=== PATIENT | female | born 1980 | race Caucasian/White ===

== ENCOUNTER 2023-06-08 09:56 | Emergency (ER) | payer OTHER ==
[2023-06-08 10:34] VITALS: RESP 18
[2023-06-08] MEDS: HYDROmorphone 0.5 MG/0.5 ML SYRINGE IVP STA (11:00)
[2023-06-08] MEDS: ONDANSETRON 4 MG/2 ML VIAL IVP STA (11:00)
[2023-06-08] MEDS: SODIUM CHLORIDE 0.9% 1,000 ML IV STA (11:01)
[2023-06-08 11:07] LABS: Basophils # (A) 0.1 k/uL (0-0.2); Basophils % (A) 1 %; Eosinophils # (A) 0.5 k/uL (0-0.7); Eosinophils % (A) 6 %; HCT 41.1 % (34.0-46.0); HGB 13.5 gm/dL (11.4-16.0); Lymphocytes # (A) 1.7 k/uL (1.0-4.8); Lymphocytes % (A) 20 %; MCHC 32.9 g/dL (31.0-37.0); MCV 91.2 fL (80.0-100.0); Mean Platelet Volume 7.6; Monocytes # (A) 0.3 k/uL (0-1.0); Monocytes % (A) 4 %; Neutrophils # (A) 6.1 k/uL (1.3-7.7); Neutrophils % (A) 69 %; Platelet Count 221 k/uL (150-450); RDW 12.4 % (11.5-15.5); WBC 8.8 k/uL (3.8-10.6)
[2023-06-08 12:19] LABS: ALT 13 U/L (4-34); African American GFR (CKD) >90 (>60 ml/min/1.73 sqM); Anion Gap 5 mmol/L; Blood Urea Nitrogen 11 mg/dL (7-17); Carbon Dioxide 21 mmol/L (22-30); Chloride 110 mmol/L (98-107); Glucose 83 mg/dL (74-99); Lipase 106 U/L (23-300); Non-African American GFR(CKD) >90 (>60 ml/min/1.73 sqM); Sodium 136 mmol/L (137-145); Total Bilirubin 0.7 mg/dL (0.2-1.3); Total Protein 6.9 g/dL (6.3-8.2)
[2023-06-08 12:21] LABS: AST 29 U/L (14-36); Alkaline Phosphatase 49 U/L (38-126); Potassium 4.6 mmol/L (3.5-5.1)
--- NOTE | 2023-06-08 13:05 | CT ---
EXAMINATION TYPE: CT abdomen pelvis w con DATE OF EXAM: 06/08/2023 COMPARISON: None HISTORY: hernia pain, abd pain. CT DLP: 798.3 mGycm CONTRAST: CT scan of the abdomen and pelvis is performed without Oral Contrast and with IV Contrast, patient in jected with 100ml mL of Isovue 300. FINDINGS: LUNG BASES-: No visible nodule. No infiltrate. LIVER/GB: No calcified gallstones. No space occupying hepatic lesion. Biliary tree is of normal ca liber. PANCREAS: No inflammation. No distinct mass. SPLEEN: No splenic enlargement. No lesion seen. ADRENALS: No nodule. No thickening. KIDNEYS/BLADDER: No hydronephrosis. No nephrolithiasis. No distinct renal mass. Urinary bladder g rossly unremarkable. BOWEL: Normal appendix. Normal bowel caliber. No inflammation. GENITAL ORGANS: Left ovarian follicular cyst measuring 1.2 cm. Correlate for bicornuate uterus. No ri ght adnexal masses. LYMPH NODES: No greater than 1cm abdominal or pelvic lymph nodes are appreciated. AORTA: No significant abnormality. OSSEOUS STRUCTURES: No significant abnormality is seen. OTHER: Fat-containing umbilical hernia 3.1 x 2.8 cm. IMPRESSION: 1. Left ovarian follicular cyst measuring 1.2 cm. Correlate for bicornuate uterus. 2. Fat-containing umbilical hernia.
[2023-06-08] MEDS: droPERidol 5 MG/2 ML VIAL IVP ONE (13:14)
--- NOTE | 2023-06-08 14:06 | ED ---
Abdominal Pain HPI - General Chief Complaint: Abdominal Pain Stated Complaint: Abdominal Pain Time Seen by Provider: 06/08/23 10:11 Source: patient, RN notes reviewed Mode of arrival: ambulatory Limitations: no limitations - History of Present Illness Initial Comments: 42-year-old female presents emergency department complaint of abdominal abdominal pain for over a week. Patient states that she seen on outside facility was diagnosed with possible incarcerated hernia. She states that they tried to reduce unsuccessful. Patient states that she has been referred to Dr. Greer which patient is scheduled to see him tomorrow. Patient states that she was concerned as pain worsened today she does have associated nausea and vomiting. Patient denies any trauma denies any other associated symptoms. - Related Data Home Medications Medication Instructions Recorded Confirmed Acetaminophen Tab [Tylenol Tab] 1,000 mg PO Q6HR PRN 06/08/23 06/08/23 Albuterol Inhaler [Ventolin Hfa 1 - 2 puff INHALATION RT-Q6H PRN 06/08/23 06/08/23 Inhaler] Benzonatate [Tessalon Perles] 100 mg PO TID PRN 06/08/23 06/08/23 Hyoscyamine Sulfate [Levsin] 1 dose PO DIRECTED 06/08/23 06/08/23 LORazepam [Ativan] 0.5 mg PO DAILY PRN 06/08/23 06/08/23 Ondansetron Odt [Zofran Odt] 4 mg PO Q8HR PRN 06/08/23 06/08/23 PARoxetine HCL 40 mg PO DAILY 06/08/23 06/08/23 Rosuvastatin [Crestor] 20 mg PO DAILY 06/08/23 06/08/23 traZODone HCL [Desyrel] 100 mg PO HS 06/08/23 06/08/23 Previous Rx's Medication Instructions Recorded Ondansetron Odt [Zofran Odt] 4 mg PO Q8HR PRN #10 tab 06/08/23 Allergies Allergy/AdvReac Type Severity Reaction Status Date / Time cefaclor [From [facility]] Allergy Rash/Hives Verified 06/08/23 13:51 doxycycline Allergy Nausea & Verified 06/08/23 13:51 Vomiting Penicillins Allergy Rash/Hives Verified 06/08/23 13:51 Sulfa (Sulfonamide Allergy Anaphylaxis Verified 06/08/23 13:51 Antibiotics) Review of Systems ROS Statement: Those systems with pertinent positive or pertinent negative responses have been documented in the HPI. ROS Other: All systems not noted in ROS Statement are negative. Past Medical History Past Medical History: No Reported History History of Any Multi-Drug Resistant Organisms: None Reported Past Surgical History: Tubal Ligation Past Psychological History: Anxiety Smoking Status: Vaper Past Alcohol Use History: None Reported Past Drug Use History: Marijuana General Exam Limitations: no limitations General appearance: alert, in no apparent distress Head exam: Present: atraumatic, normocephalic, normal inspection Respiratory exam: Present: normal lung sounds bilaterally. Absent: respiratory distress, wheezes, rales, rhonchi, stridor Cardiovascular Exam: Present: regular rate, normal rhythm, normal heart sounds. Absent: systolic murmur, diastolic murmur, rubs, gallop, clicks GI/Abdominal exam: Present: soft, tenderness, normal bowel sounds. Absent: distended, guarding, rebound, rigid Course Vital Signs 06/08/23 06/08/23 10:23 14:20 Temperature 97.9 F 98.3 F Pulse Rate 65 59 L Respiratory 18 18 Rate Blood Pressure 118/78 100/62 O2 Sat by Pulse 99 98 Oximetry Medical Decision Making - Medical Decision Making Was pt. sent in by a medical professional or institution (NIRAJ Hurley, STAFF MIDWIFE/APPRENTICESHIP DIRECTOR, urgent care, hospital, or snf...) When possible be specific @ -No Did you speak to anyone other than the patient for history (EMS, parent, family, police, friend...)? What history was obtained from this source @ -No Did you review nursing and triage notes (agree or disagree)? Why? @ -I reviewed and agree with nursing and triage notes Were old charts reviewed (outside hosp., previous admission, EMS record, old EKG, old radiological studies, urgent care reports/EKG's, snf records)? Report findings @ -No old charts were reviewed Differential Diagnosis (chest pain, altered mental status, abdominal pain women, abdominal pain men, vaginal bleeding, weakness, fever, dyspnea, syncope, headache, dizziness, GI bleed, back pain, seizure, CVA, palpatations, mental health, musculoskeletal)? @ -Differential Abdominal Pain Women: Appendicitis, Cholecystitis, diverticulosis, ischemic bowel, pancreatitis, hepatitis, UTI, gastroenteritis, AAA, incarcerated hernia, bowel obstruction, constipation, inflammatory bowel, hepatitis, peptic ulcer disease, splenic infarction, perforated viscus, vulvitis, ovarian torsion, PID, kidney stone, placenta abruption, this is not meant to be an all-inclusive list EKG interpreted by me (3pts min.). @ -none X-rays interpreted by me (1pt min.). @ -None done CT interpreted by me (1pt min.). @ -CT abdomen pelvis showing umbilical hernia fat-containing no bowel or other concerning findings U/S interpreted by me (1pt. min.). @ -None done What testing was considered but not performed or refused? (CT, X-rays, U/S, labs)? Why? @ -None What meds were considered but not given or refused? Why? @ -None Did you discuss the management of the patient with other professionals (professionals i.e. , PA, STAFF MIDWIFE/APPRENTICESHIP DIRECTOR, lab, RT, psych nurse, social service assistant, documentation supervisor, teacher, minesweeping officer, egg caser)? Give summary @ -No Was smoking cessation discussed for >3mins.? @ -No Was critical care preformed (if so, how long)? @ -No Were there social determinants of health that impacted care today? How? (Homelessness, low income, unemployed, alcoholism, drug addiction, transportation, low edu. Level, literacy, decrease access to med. care, usp, rehab)? @ -No Was there de-escalation of care discussed even if they declined (Discuss DNR or withdrawal of care, Hospice)? DNR status @ -No What co-morbidities impacted this encounter? (DM, HTN, Smoking, COPD, CAD, Cancer, CVA, ARF, Chemo, Hep., AIDS, mental health diagnosis, sleep apnea, morbid obesity)? @ -None Was patient admitted / discharged? Hospital course, mention meds given and route, prescriptions, significant lab abnormalities, going to OR and other pertinent info. @ -Discharge patient has appointment with surgery tomorrow Dr. Greer Patient has no incarcerated hernia. Patient laboratory studies unremarkable be discharged in stable condition. Undiagnosed new problem with uncertain prognosis? @ -No Drug Therapy requiring intensive monitoring for toxicity (Heparin, Nitro, Insulin, Cardizem)? @ -No Were any procedures done? @ -No Diagnosis/symptom? @ -Fat-containing umbilical hernia Acute, or Chronic, or Acute on Chronic? @ -Acute Uncomplicated (without systemic symptoms) or Complicated (systemic symptoms)? @ -Uncomplicated Side effects of treatment? @ -No Exacerbation, Progression, or Severe Exacerbation? @ -No Poses a threat to life or bodily function? How? (Chest pain, [place], [place], pneumonia, PE, COPD, DKA, ARF, appy, cholecystitis, CVA, Diverticulitis, Homicidal, Suicidal, threat to staff... and all critical care pts) @ -No - Lab Data Result diagrams: 06/08/23 10:57 06/08/23 10:57 Lab Results 06/08/23 06/08/23 06/08/23 Range/Units 10:57 10:57 11:20 WBC 8.8 (3.8-10.6) k/uL RBC 4.50 (3.80-5.40) m/uL Hgb 13.5 (11.4-16.0) gm/dL Hct 41.1 (34.0-46.0) % MCV 91.2 (80.0-100.0) fL MCH 30.0 (25.0-35.0) pg MCHC 32.9 (31.0-37.0) g/dL RDW 12.4 (11.5-15.5) % Plt Count 221 (150-450) k/uL MPV 7.6 Neutrophils % 69 % Lymphocytes % 20 % Monocytes % 4 % Eosinophils % 6 % Basophils % 1 % Neutrophils # 6.1 (1.3-7.7) k/uL Lymphocytes # 1.7 (1.0-4.8) k/uL Monocytes # 0.3 (0-1.0) k/uL Eosinophils # 0.5 (0-0.7) k/uL Basophils # 0.1 (0-0.2) k/uL Sodium 136 L (137-145) mmol/L Potassium 4.6 (3.5-5.1) mmol/L Chloride 110 H (98-107) mmol/L Carbon Dioxide 21 L (22-30) mmol/L Anion Gap 5 mmol/L BUN 11 (7-17) mg/dL Creatinine 0.69 (0.52-1.04) mg/dL Est GFR (CKD-EPI)AfAm >90 (>60 ml/min/1.73 sqM) Est GFR (CKD-EPI)NonAf >90 (>60 ml/min/1.73 sqM) Glucose 83 (74-99) mg/dL Plasma Lactic Acid Devon 0.7 (0.7-2.0) mmol/L Calcium 9.0 (8.4-10.2) mg/dL Total Bilirubin 0.7 (0.2-1.3) mg/dL AST 29 (14-36) U/L ALT 13 (4-34) U/L Alkaline Phosphatase 49 (38-126) U/L Total Protein 6.9 (6.3-8.2) g/dL Albumin 4.0 (3.5-5.0) g/dL Lipase 106 (23-300) U/L Disposition Clinical Impression: Umbilical hernia Disposition: HOME SELF-CARE Condition: Stable Instructions (If sedation given, give patient instructions): Umbilical Hernia (ED) Additional Instructions: Please return to the Emergency Department if symptoms worsen or any other concerns. Prescriptions: Ondansetron Odt [Zofran Odt] 4 mg PO Q8HR PRN #10 tab PRN Reason: Nausea Is patient prescribed a controlled substance at d/c from ED?: No Referrals: Ganga Leone MD [Primary Care Provider] - 1-2 days Narendra Greer MD [STAFF PHYSICIAN] - 1-2 days Time of Disposition: 14:05
[2023-06-08] MEDS: ACET/COD 300 MG/30 MG STARTER PACK 6 TAB BTL PO STA (14:17)
[2023-06-08 14:59] VITALS: BP 100/62; PULSE 59; TEMP 98.3
== END 2023-06-08 14:28 | disposition home or self-care (01) ==
LOC: EC 09:56
DX: K42.9 Umbilical hernia without obstruction or gangrene (principal); N83.02 Follicular cyst of left ovary; F17.290 Nicotine dependence, other tobacco product, uncomplicated; F12.90 Cannabis use, unspecified, uncomplicated; Z88.0 Allergy status to penicillin; Z88.2 Allergy status to sulfonamides; Z88.8 Allergy status to other drugs, medicaments and biological substances
CPT/HCPCS: 36415; 80053; 83605; 83690; 85025; 74177; 99284; 96374; 96375 ×2; 96361; J2405; J1170; Q9967; J1790

== ENCOUNTER 2023-06-13 17:08 | Observation (INO) | payer OTHER ==
--- NOTE | 2023-06-13 17:55 | ED ---
Abdominal Pain HPI - General Chief Complaint: Abdominal Pain Stated Complaint: Hernia Time Seen by Provider: 06/13/23 17:17 Source: patient Mode of arrival: ambulatory Limitations: no limitations - History of Present Illness Initial Comments: 42-year-old female present with chief complaint of abdominal pain. Patient states that she has been constipated and has not had a bowel movement for the last 3 days. She is having severe pressure and pain, mainly in the left lower quadrant and lower abdomen. She has surgery for an umbilical hernia scheduled for Thursday with Dr. Greer. She admits to nausea and vomiting. No fevers. No chest pain or difficulty breathing. Surgical history includes tubal ligation. - Related Data Home Medications Medication Instructions Recorded Confirmed Acetaminophen Tab [Tylenol Tab] 1,000 mg PO Q6HR PRN 06/08/23 06/12/23 Albuterol Inhaler [Ventolin Hfa 1 - 2 puff INHALATION RT-Q6H PRN 06/08/23 06/12/23 Inhaler] Benzonatate [Tessalon Perles] 100 mg PO TID PRN 06/08/23 06/12/23 Hyoscyamine Sulfate [Levsin] 1 dose PO DIRECTED 06/08/23 06/12/23 LORazepam [Ativan] 0.5 mg PO DAILY PRN 06/08/23 06/12/23 Ondansetron Odt [Zofran Odt] 4 mg PO Q8HR PRN 06/08/23 06/12/23 PARoxetine HCL 40 mg PO DAILY 06/08/23 06/12/23 Rosuvastatin [Crestor] 20 mg PO DAILY 06/08/23 06/12/23 traZODone HCL [Desyrel] 100 mg PO HS 06/08/23 06/12/23 Allergies Allergy/AdvReac Type Severity Reaction Status Date / Time cefaclor [From [facility]] Allergy Rash/Hives Verified 06/13/23 17:13 doxycycline Allergy Nausea & Verified 06/13/23 17:13 Vomiting Penicillins Allergy Rash/Hives Verified 06/13/23 17:13 Sulfa (Sulfonamide Allergy Anaphylaxis Verified 06/13/23 17:13 Antibiotics) Review of Systems ROS Statement: Those systems with pertinent positive or pertinent negative responses have been documented in the HPI. ROS Other: All systems not noted in ROS Statement are negative. Past Medical History Past Medical History: No Reported History Additional Past Medical History / Comment(s): UMBILICAL HERNIA History of Any Multi-Drug Resistant Organisms: None Reported Past Surgical History: Tubal Ligation, Uterine Ablation Additional Past Surgical History / Comment(s): UTERINE ABLATION 05/2021 Past Anesthesia/Blood Transfusion Reactions: No Reported Reaction Past Psychological History: Anxiety, Panic Disorder Smoking Status: Former smoker, Vaper Past Alcohol Use History: None Reported Past Drug Use History: None Reported - Past Family History Mother Family Medical History: No Reported History Additional Family Medical History / Comment(s): ADOPTED General Exam Limitations: no limitations General appearance: alert, in distress (crying, in pain) Head exam: Present: atraumatic, normocephalic Eye exam: Present: normal appearance Neck exam: Present: normal inspection Respiratory exam: Present: normal lung sounds bilaterally. Absent: respiratory distress, wheezes, rales, rhonchi, stridor Cardiovascular Exam: Present: regular rate, normal rhythm, normal heart sounds. Absent: systolic murmur, diastolic murmur, rubs, gallop, clicks GI/Abdominal exam: Present: soft, tenderness, guarding. Absent: distended, rebound, rigid Neurological exam: Present: alert, oriented X3 Psychiatric exam: Present: normal affect, normal mood Skin exam: Present: warm, dry Course Vital Signs 06/13/23 06/13/23 06/13/23 17:11 18:10 19:05 Temperature 97.8 F 98.8 F 98.0 F Pulse Rate 72 74 68 Respiratory 16 20 17 Rate Blood Pressure 107/76 103/78 96/63 O2 Sat by Pulse 99 96 96 Oximetry 06/13/23 06/13/23 06/13/23 20:03 21:00 21:54 Temperature Pulse Rate 70 62 62 Respiratory 16 16 16 Rate Blood Pressure 90/63 94/62 102/70 O2 Sat by Pulse 97 97 98 Oximetry 06/13/23 22:58 Temperature 98.6 F Pulse Rate 63 Respiratory 16 Rate Blood Pressure 100/71 O2 Sat by Pulse 97 Oximetry Medical Decision Making - Medical Decision Making Was pt. sent in by a medical professional or institution (, PA, LIQUEFIED NATURAL GAS OPERATOR, urgent care, hospital, or [place] health care facility...) When possible be specific @ -No Did you speak to anyone other than the patient for history (EMS, parent, family, police, friend...)? What history was obtained from this source @ -No Did you review nursing and triage notes (agree or disagree)? Why? @ -I reviewed and agree with nursing and triage notes Were old charts reviewed (outside hosp., previous admission, EMS record, old EKG, old radiological studies, urgent care reports/EKG's, [place] health care facility records)? Report findings @ -No old charts were reviewed Differential Diagnosis (chest pain, altered mental status, abdominal pain women, abdominal pain men, vaginal bleeding, weakness, fever, dyspnea, syncope, headache, dizziness, GI bleed, back pain, seizure, CVA, palpatations, mental health, musculoskeletal)? @ -MDM Differential Abdominal Pain Women: Appendicitis, Cholecystitis, diverticulosis, ischemic bowel, pancreatitis, hepatitis, UTI, gastroenteritis, AAA, incarcerated hernia, bowel obstruction, constipation, inflammatory bowel, hepatitis, peptic ulcer disease, splenic infarction, perforated viscus, vulvitis, ovarian torsion, PID, kidney stone, placenta abruption... This is not meant to be an all-inclusive list EKG interpreted by me (3pts min.). @ -As above X-rays interpreted by me (1pt min.). @ -None done CT interpreted by me (1pt min.). @ -CT shows fluid distention of small and large bowel felt to reflect enterocolitis with mild ileus. Normal fluid distended appendix. U/S interpreted by me (1pt. min.). @ -None done What testing was considered but not performed or refused? (CT, X-rays, U/S, labs)? Why? @ -None What meds were considered but not given or refused? Why? @ -None Did you discuss the management of the patient with other professionals (professionals i.e. , PA, LIQUEFIED NATURAL GAS OPERATOR, lab, RT, psych nurse, social group worker, residence life director, teacher, youth officer, supervisor case loading)? Give summary @ -Spoke with Edna Nguyen from [facility] who accepted admission Was smoking cessation discussed for >3mins.? @ -No Was critical care preformed (if so, how long)? @ -No Were there social determinants of health that impacted care today? How? (Homelessness, low income, unemployed, alcoholism, drug addiction, transportation, low edu. Level, literacy, decrease access to med. care, detention, rehab)? @ -No Was there de-escalation of care discussed even if they declined (Discuss DNR or withdrawal of care, Hospice)? DNR status @ -No What co-morbidities impacted this encounter? (DM, HTN, Smoking, COPD, CAD, Cancer, CVA, ARF, Chemo, Hep., AIDS, mental health diagnosis, sleep apnea, morbid obesity)? @ -None Was patient admitted / discharged? Hospital course, mention meds given and route, prescriptions, significant lab abnormalities, going to OR and other pertinent info. @ -42-year-old female presenting with chief complaint of abdominal pain, nausea, vomiting. She has been unable to have a bowel movement for several days. On physical exam the patient is diffusely tender but seems to be most tender in the left lower quadrant. WBC 14.6, may be reactive due to vomiting. Urine shows small blood with trace leukocytes. CT shows evidence of enterocolitis with mild ileus. The patient's pain has been brought down somewhat but she is still quite uncomfortable even after pain medication. She will be admitted for observation with surgical consult. Patient is agreeable with this plan. I discussed this case with my attending Dr. Becerril Undiagnosed new problem with uncertain prognosis? @ -No Drug Therapy requiring intensive monitoring for toxicity (Heparin, Nitro, Insulin, Cardizem)? @ -No Were any procedures done? @ -No Diagnosis/symptom? @ -Ileus Acute, or Chronic, or Acute on Chronic? @ -Acute Uncomplicated (without systemic symptoms) or Complicated (systemic symptoms)? @ -Complicated Side effects of treatment? @ -No Exacerbation, Progression, or Severe Exacerbation? @ -No Poses a threat to life or bodily function? How? (Chest pain, [place], [place], pneumonia, PE, COPD, DKA, ARF, appy, cholecystitis, CVA, Diverticulitis, Homicidal, Suicidal, threat to staff... and all critical care pts) @ -Potentially - Lab Data Result diagrams: 06/13/23 18:00 06/13/23 18:00 Lab Results 06/13/23 06/13/23 06/13/23 Range/Units 17:45 18:00 18:00 WBC 14.6 H (3.8-10.6) k/uL RBC 5.07 (3.80-5.40) m/uL Hgb 15.1 (11.4-16.0) gm/dL Hct 46.0 (34.0-46.0) % MCV 90.6 (80.0-100.0) fL MCH 29.7 (25.0-35.0) pg MCHC 32.8 (31.0-37.0) g/dL RDW 12.5 (11.5-15.5) % Plt Count 303 (150-450) k/uL MPV 7.5 Neutrophils % 71 % Lymphocytes % 20 % Monocytes % 3 % Eosinophils % 4 % Basophils % 1 % Neutrophils # 10.4 H (1.3-7.7) k/uL Lymphocytes # 2.9 (1.0-4.8) k/uL Monocytes # 0.5 (0-1.0) k/uL Eosinophils # 0.6 (0-0.7) k/uL Basophils # 0.1 (0-0.2) k/uL Sodium 138 (137-145) mmol/L Potassium 4.4 (3.5-5.1) mmol/L Chloride 102 (98-107) mmol/L Carbon Dioxide 27 (22-30) mmol/L Anion Gap 9 mmol/L BUN 14 (7-17) mg/dL Creatinine 0.76 (0.52-1.04) mg/dL Est GFR (CKD-EPI)AfAm >90 (>60 ml/min/1.73 sqM) Est GFR (CKD-EPI)NonAf >90 (>60 ml/min/1.73 sqM) Glucose 99 (74-99) mg/dL Plasma Lactic Acid Devon (0.7-2.0) mmol/L Calcium 10.3 H (8.4-10.2) mg/dL Total Bilirubin 0.8 (0.2-1.3) mg/dL AST 23 (14-36) U/L ALT 14 (4-34) U/L Alkaline Phosphatase 53 (38-126) U/L Total Protein 8.1 (6.3-8.2) g/dL Albumin 4.8 (3.5-5.0) g/dL Amylase 55 (30-110) U/L Lipase 101 (23-300) U/L Urine Color Yellow Urine Appearance Cloudy H (Clear) Urine pH 7.5 (5.0-8.0) Ur Specific [place] 1.021 (1.001-1.035) Urine Protein Trace H (Negative) Urine Glucose (UA) Negative (Negative) Urine Ketones 2+ H (Negative) Urine Blood Small H (Negative) Urine Nitrite Negative (Negative) Urine Bilirubin Negative (Negative) Urine Urobilinogen <2.0 (<2.0) mg/dL Ur Leukocyte Esterase Trace H (Negative) Urine RBC 7 H (0-5) /hpf Urine WBC 2 (0-5) /hpf Ur Squamous Epith Cells 19 H (0-4) /hpf Urine Bacteria Moderate H (None) /hpf Urine Mucus Few H (None) /hpf 06/13/23 Range/Units 18:00 WBC (3.8-10.6) k/uL RBC (3.80-5.40) m/uL Hgb (11.4-16.0) gm/dL Hct (34.0-46.0) % MCV (80.0-100.0) fL MCH (25.0-35.0) pg MCHC (31.0-37.0) g/dL RDW (11.5-15.5) % Plt Count (150-450) k/uL MPV Neutrophils % % Lymphocytes % % Monocytes % % Eosinophils % % Basophils % % Neutrophils # (1.3-7.7) k/uL Lymphocytes # (1.0-4.8) k/uL Monocytes # (0-1.0) k/uL Eosinophils # (0-0.7) k/uL Basophils # (0-0.2) k/uL Sodium (137-145) mmol/L Potassium (3.5-5.1) mmol/L Chloride (98-107) mmol/L Carbon Dioxide (22-30) mmol/L Anion Gap mmol/L BUN (7-17) mg/dL Creatinine (0.52-1.04) mg/dL Est GFR (CKD-EPI)AfAm (>60 ml/min/1.73 sqM) Est GFR (CKD-EPI)NonAf (>60 ml/min/1.73 sqM) Glucose (74-99) mg/dL Plasma Lactic Acid Devon 1.1 (0.7-2.0) mmol/L Calcium (8.4-10.2) mg/dL Total Bilirubin (0.2-1.3) mg/dL AST (14-36) U/L ALT (4-34) U/L Alkaline Phosphatase (38-126) U/L Total Protein (6.3-8.2) g/dL Albumin (3.5-5.0) g/dL Amylase (30-110) U/L Lipase (23-300) U/L Urine Color Urine Appearance (Clear) Urine pH (5.0-8.0) Ur Specific [place] (1.001-1.035) Urine Protein (Negative) Urine Glucose (UA) (Negative) Urine Ketones (Negative) Urine Blood (Negative) Urine Nitrite (Negative) Urine Bilirubin (Negative) Urine Urobilinogen (<2.0) mg/dL Ur Leukocyte Esterase (Negative) Urine RBC (0-5) /hpf Urine WBC (0-5) /hpf Ur Squamous Epith Cells (0-4) /hpf Urine Bacteria (None) /hpf Urine Mucus (None) /hpf Disposition Clinical Impression: Ileus Disposition: ADMITTED IP TO THIS HOSP Condition: Fair Time of Disposition: 21:33
[2023-06-13] MEDS: HYDROmorphone 1 MG/ML 1 ML SYRINGE IVP STA (18:02)
[2023-06-13] MEDS: ONDANSETRON 4 MG/2 ML VIAL IVP STA (18:05)
[2023-06-13] MEDS: SODIUM CHLORIDE 0.9% 1,000 ML IV STA (18:06)
[2023-06-13 18:14] LABS: Basophils # (A) 0.1 k/uL (0-0.2); Basophils % (A) 1 %; Eosinophils # (A) 0.6 k/uL (0-0.7); Eosinophils % (A) 4 %; HGB 15.1 gm/dL (11.4-16.0); Lymphocytes # (A) 2.9 k/uL (1.0-4.8); Lymphocytes % (A) 20 %; MCH 29.7 pg (25.0-35.0); MCHC 32.8 g/dL (31.0-37.0); MCV 90.6 fL (80.0-100.0); Mean Platelet Volume 7.5; Monocytes # (A) 0.5 k/uL (0-1.0); Monocytes % (A) 3 %; Neutrophils # (A) 10.4 k/uL (1.3-7.7); Neutrophils % (A) 71 %; Platelet Count 303 k/uL (150-450); RBC 5.07 m/uL (3.80-5.40); RDW 12.5 % (11.5-15.5); WBC 14.6 k/uL (3.8-10.6)
[2023-06-13 18:27] LABS: ALT 14 U/L (4-34); AST 23 U/L (14-36); African American GFR (CKD) >90 (>60 ml/min/1.73 sqM); Albumin 4.8 g/dL (3.5-5.0); Alkaline Phosphatase 53 U/L (38-126); Amylase 55 U/L (30-110); Anion Gap 9 mmol/L; Blood Urea Nitrogen 14 mg/dL (7-17); Calcium 10.3 mg/dL (8.4-10.2); Carbon Dioxide 27 mmol/L (22-30); Chloride 102 mmol/L (98-107); Glucose 99 mg/dL (74-99); Lipase 101 U/L (23-300); Non-African American GFR(CKD) >90 (>60 ml/min/1.73 sqM); Potassium 4.4 mmol/L (3.5-5.1); Sodium 138 mmol/L (137-145); Total Bilirubin 0.8 mg/dL (0.2-1.3); Total Protein 8.1 g/dL (6.3-8.2)
[2023-06-13 18:40] LABS: Appearance,Urine Cloudy (Clear); Bacteria,Urine Moderate /hpf; Bilirubin,Urine Negative (Negative); Blood,Urine Small (Negative); Color,Urine Yellow; Glucose,Urine (UA) Negative (Negative); Ketones,Urine 2+ (Negative); Leukocyte Esterase,Urine Trace (Negative); Mucus,Urine Few /hpf; Nitrite,Urine Negative (Negative); PH, Urine 7.5 (5.0-8.0); Protein,Urine Trace (Negative); RBC,Urine 7 /hpf (0-5); Specific Gravity,Urine 1.021 (1.001-1.035); Squamous Epithelial Cell,Urine 19 /hpf (0-4); Urobilinogen,Urine <2.0 mg/dL (<2.0); WBC,Urine 2 /hpf (0-5)
[2023-06-13] MEDS: SODIUM CHLORIDE 0.9% 1,000 ML IV ONE (20:02)
[2023-06-13] MEDS: KETOROLAC 15 MG/ML 1 ML VIAL IVP STA (20:18)
[2023-06-13] MEDS: SODIUM CHLORIDE 0.9% 1,000 ML IV SCH (20:24)
--- NOTE | 2023-06-13 21:12 | CT ---
EXAMINATION TYPE: CT abdomen pelvis w con DATE OF EXAM: 06/13/2023 COMPARISON: 06/08/2023 HISTORY: Abdominal pain, umbilical hernia. CT DLP: 808.5 mGycm CONTRAST: CT scan of the abdomen and pelvis is performed without Oral Contrast and with IV Contrast, patient in jected with 100 ml mL of Isovue 300. FINDINGS: LUNG BASES-: No visible nodule. No infiltrate. LIVER/GB: No calcified gallstones. No space occupying hepatic lesion. Biliary tree is of normal ca liber. PANCREAS: No inflammation. No distinct mass. SPLEEN: No splenic enlargement. No lesion seen. ADRENALS: No nodule. No thickening. KIDNEYS/BLADDER: No hydronephrosis. No nephrolithiasis. No distinct renal mass. Urinary bladder g rossly unremarkable. BOWEL: There is now fluid distention of small and large bowel felt to reflect enterocolitis with mild ileus. No definite obstructive change. No evidence for perforation or free air. Normal appearance of the distended appendix. GENITAL ORGANS: Colloid for bicornuate uterus. LYMPH NODES: No greater than 1cm abdominal or pelvic lymph nodes are appreciated. AORTA: No significant abnormality. OSSEOUS STRUCTURES: No significant abnormality is seen. OTHER: Fat-containing umbilical hernia redemonstrated. IMPRESSION: 1. There is now fluid distention of small and large bowel felt to reflect enterocolitis with mild ile us. 2. Normal fluid distended appendix.
[2023-06-13] MEDS ORDERED: KETOROLAC 15 MG/ML 1 ML VIAL IVP PRN (21:30)
[2023-06-13] MEDS ORDERED: NALOXONE 0.4 MG/ML 1 ML VIAL IV PRN (21:30)
[2023-06-13] MEDS: HYDROmorphone 1 MG/ML 1 ML SYRINGE IVP PRN (21:53)
[2023-06-13] MEDS: LORazepam 2 MG/ML INJ IV PRN (23:31)
[2023-06-14] MEDS: ONDANSETRON 4 MG/2 ML VIAL IVP PRN (05:37)
[2023-06-14 09:46] LABS: ALT 11 U/L (4-34); AST 19 U/L (14-36); African American GFR (CKD) >90 (>60 ml/min/1.73 sqM); Albumin 3.5 g/dL (3.5-5.0); Albumin/Globulin Ratio 1.4; Alkaline Phosphatase 45 U/L (38-126); Anion Gap 4 mmol/L; Blood Urea Nitrogen 11 mg/dL (7-17); Calcium 8.4 mg/dL (8.4-10.2); Carbon Dioxide 25 mmol/L (22-30); Chloride 111 mmol/L (98-107); Globulin 2.5 g/dL; Glucose 81 mg/dL (74-99); Non-African American GFR(CKD) >90 (>60 ml/min/1.73 sqM); Potassium 4.1 mmol/L (3.5-5.1); Sodium 140 mmol/L (137-145); Total Bilirubin 0.6 mg/dL (0.2-1.3)
[2023-06-14 10:03] LABS: Basophils % (A) 1 %; Eosinophils # (A) 0.6 k/uL (0-0.7); Eosinophils % (A) 7 %; HCT 39.8 % (34.0-46.0); HGB 13.2 gm/dL (11.4-16.0); Lymphocytes # (A) 1.8 k/uL (1.0-4.8); Lymphocytes % (A) 23 %; MCH 30.4 pg (25.0-35.0); MCHC 33.1 g/dL (31.0-37.0); MCV 91.7 fL (80.0-100.0); Mean Platelet Volume 8.1; Monocytes # (A) 0.3 k/uL (0-1.0); Monocytes % (A) 4 %; Neutrophils % (A) 64 %; Platelet Count 229 k/uL (150-450); RBC 4.34 m/uL (3.80-5.40); RDW 12.7 % (11.5-15.5); WBC 7.8 k/uL (3.8-10.6)
[2023-06-14] MEDS: metroNIDAZOLE-NS PMX 500 MG in SALINE 1 100ML.BAG IVPB SCH (10:17)
[2023-06-14] MEDS: METOCLOPRAMIDE 5 MG/ML 2 ML VIAL IVP SCH (11:00)
--- NOTE | 2023-06-14 11:22 | P.GSCN ---
History of Present Illness Consult date: 06/14/23 Reason for Consult: Abdominal pain History of present illness: 42-year-old female describes several day history of nausea vomiting and abdomina l pain. She apparently is scheduled for umbilical hernia repair this Thursday with Dr. Greer. Has been having obstipation up until yesterday. Started moving her bowels yesterday. Loose and solid. Saw a small amount of blood. No history of previous colonoscopy. Patient states she still has intractable nausea and vomiting however. Describes diffuse abdominal pain slightly more on the left side of her abdomen. CAT scan shows proximal colonic distention. No definite transition point however rectum somewhat collapsed. No history of diverticulitis. Had 2 separate CAT scans both reviewed. Review of Systems The patient denies any acute changes in vision or hearing, no dysphagia or odynophagia, no chest pain or shortness of breath, no dysuria or hematuria, no headache, no runny nose, no melena, no unexplained weight loss Past Medical History Past Medical History: No Reported History Additional Past Medical History / Comment(s): UMBILICAL HERNIA History of Any Multi-Drug Resistant Organisms: None Reported Past Surgical History: Tubal Ligation, Uterine Ablation Additional Past Surgical History / Comment(s): UTERINE ABLATION 05/2021 Past Anesthesia/Blood Transfusion Reactions: No Reported Reaction Past Psychological History: Anxiety, Panic Disorder Smoking Status: Former smoker, Vaper Past Alcohol Use History: None Reported Past Drug Use History: None Reported - Past Family History Mother Family Medical History: No Reported History Additional Family Medical History / Comment(s): ADOPTED Medications and Allergies Home Medications Medication Instructions Recorded Confirmed Type Acetaminophen Tab [Tylenol Tab] 1,000 mg PO Q6HR PRN 06/08/23 06/14/23 History Albuterol Inhaler [Ventolin Hfa 1 - 2 puff INHALATION RT-Q6H PRN 06/08/23 06/14/23 History Inhaler] Benzonatate [Tessalon Perles] 100 mg PO TID PRN 06/08/23 06/14/23 History Hyoscyamine Sulfate [Levsin] 0.125 mg PO Q4HR PRN 06/08/23 06/14/23 History LORazepam [Ativan] 0.5 mg PO DAILY PRN 06/08/23 06/14/23 History Ondansetron Odt [Zofran Odt] 4 mg PO Q8HR PRN 06/08/23 06/14/23 History PARoxetine HCL 40 mg PO DAILY 06/08/23 06/14/23 History Rosuvastatin [Crestor] 20 mg PO DAILY 06/08/23 06/14/23 History diazePAM [Valium] 2 mg PO DAILY PRN 06/14/23 06/14/23 History traZODone HCL [Desyrel] 100 mg PO HS 06/14/23 06/14/23 History Allergies Allergy/AdvReac Type Severity Reaction Status Date / Time [facility] [[facility] Allergy Rash/Hives Verified 06/14/23 09:21 doxycycline Allergy Nausea & Verified 06/14/23 09:21 Vomiting Penicillins Allergy Rash/Hives Verified 06/14/23 09:21 Sulfa (Sulfonamide Allergy Anaphylaxis Verified 06/14/23 09:21 Antibiotics) Surgical - Exam Vital Signs Temp Pulse Resp BP Pulse Ox 97.8 F 72 16 107/76 99 06/13/23 17:11 06/13/23 17:11 06/13/23 17:11 06/13/23 17:11 06/13/23 17:11 Physical exam: General: Well-developed, well-nourished HEENT: Normocephalic, sclerae nonicteric Abdomen: Mild distention, small umbilical hernia, mild tenderness Extremities: No edema Neuro: Alert and oriented Results - Labs 06/14/23 09:11 06/14/23 09:11 Abnormal Lab Results - Last 24 Hours (Table) 06/13/23 06/13/23 06/13/23 Range/Units 17:45 18:00 18:00 WBC 14.6 H (3.8-10.6) k/uL Neutrophils # 10.4 H (1.3-7.7) k/uL Chloride (98-107) mmol/L Calcium 10.3 H (8.4-10.2) mg/dL Total Protein (6.3-8.2) g/dL Urine Appearance Cloudy H (Clear) Urine Protein Trace H (Negative) Urine Ketones 2+ H (Negative) Urine Blood Small H (Negative) Ur Leukocyte Esterase Trace H (Negative) Urine RBC 7 H (0-5) /hpf Ur Squamous Epith Cells 19 H (0-4) /hpf Urine Bacteria Moderate H (None) /hpf Urine Mucus Few H (None) /hpf 06/14/23 Range/Units 09:11 WBC (3.8-10.6) k/uL Neutrophils # (1.3-7.7) k/uL Chloride 111 H (98-107) mmol/L Calcium (8.4-10.2) mg/dL Total Protein 6.0 L (6.3-8.2) g/dL Urine Appearance (Clear) Urine Protein (Negative) Urine Ketones (Negative) Urine Blood (Negative) Ur Leukocyte Esterase (Negative) Urine RBC (0-5) /hpf Ur Squamous Epith Cells (0-4) /hpf Urine Bacteria (None) /hpf Urine Mucus (None) /hpf Diabetes panel 06/13/23 06/14/23 Range/Units 18:00 09:11 Sodium 138 140 (137-145) mmol/L Potassium 4.4 4.1 (3.5-5.1) mmol/L Chloride 102 111 H (98-107) mmol/L Carbon Dioxide 27 25 (22-30) mmol/L BUN 14 11 (7-17) mg/dL Creatinine 0.76 0.63 (0.52-1.04) mg/dL Glucose 99 81 (74-99) mg/dL Calcium 10.3 H 8.4 (8.4-10.2) mg/dL AST 23 19 (14-36) U/L ALT 14 11 (4-34) U/L Alkaline Phosphatase 53 45 (38-126) U/L Total Protein 8.1 6.0 L (6.3-8.2) g/dL Albumin 4.8 3.5 (3.5-5.0) g/dL Calcium panel 06/13/23 06/14/23 Range/Units 18:00 09:11 Calcium 10.3 H 8.4 (8.4-10.2) mg/dL Albumin 4.8 3.5 (3.5-5.0) g/dL Pituitary panel 06/13/23 06/14/23 Range/Units 18:00 09:11 Sodium 138 140 (137-145) mmol/L Potassium 4.4 4.1 (3.5-5.1) mmol/L Chloride 102 111 H (98-107) mmol/L Carbon Dioxide 27 25 (22-30) mmol/L BUN 14 11 (7-17) mg/dL Creatinine 0.76 0.63 (0.52-1.04) mg/dL Glucose 99 81 (74-99) mg/dL Calcium 10.3 H 8.4 (8.4-10.2) mg/dL Adrenal panel 06/13/23 06/14/23 Range/Units 18:00 09:11 Sodium 138 140 (137-145) mmol/L Potassium 4.4 4.1 (3.5-5.1) mmol/L Chloride 102 111 H (98-107) mmol/L Carbon Dioxide 27 25 (22-30) mmol/L BUN 14 11 (7-17) mg/dL Creatinine 0.76 0.63 (0.52-1.04) mg/dL Glucose 99 81 (74-99) mg/dL Calcium 10.3 H 8.4 (8.4-10.2) mg/dL Total Bilirubin 0.8 0.6 (0.2-1.3) mg/dL AST 23 19 (14-36) U/L ALT 14 11 (4-34) U/L Alkaline Phosphatase 53 45 (38-126) U/L Total Protein 8.1 6.0 L (6.3-8.2) g/dL Albumin 4.8 3.5 (3.5-5.0) g/dL Assessment and Plan (1) Ileus Narrative/Plan: 42-year-old female with intractable nausea vomiting and pain. Patient with significant constipation. Will order Gastrografin enema to evaluate for distal colonic obstruction. If that is normal may benefit from colonoscopy. Will discuss with Dr. Greer since he already has her scheduled for surgery. Current Visit: Yes Status: Acute Code(s): K56.7 - ILEUS, UNSPECIFIED SNOMED Code(s): 464011165
[2023-06-14] MEDS: CIPROFLOXACIN/DEXTROSE PMX 400 MG in DEXTROSE/WATER 1 200ML.BAG IVPB SCH (11:38)
[2023-06-14] MEDS ORDERED: BENZONATATE 100 MG CAP PO PRN (12:52)
[2023-06-14] MEDS ORDERED: ALBUTEROL NEBULIZED 2.5 MG/3 ML INHALATION PRN (12:52)
--- NOTE | 2023-06-14 12:53 | P.HPIM ---
History of Present Illness H&P Date: 06/14/23 History of present illness; patient is a 42-year-old lady with past medical history significant for depression, hyperlipidemia who presented to the ER for abdominal pain. Patient was seen in the ER few days ago with similar complaints at which time she had abdominal CT scan done, she was diagnosed with having umbilical hernia, patient was discharged and referred to Dr. Greer. Patient stated that she continues to have abdominal pain, located in the left lower quadrants, intermittent, nonradiating, no aggravating or relieving factor associated with abdominal pain. Patient also complaining of not having a bowel movement for the last 3 days. Patient is saying that she is passing gas. Pat ient is complaining of nausea and vomiting. No complaint of fever or chills. Patient was scheduled for surgery in this coming week. Because of the symptoms, patient came to the ER Initial lab work done in the ER showed WBC 14.6, hemoglobin 15.1, platelet count 303, sodium 138, potassium 4.4 BUN 14, creatinine 0.76 glucose 99 calcium 10.3, AST 20, ALT 14, UA done showed Nitrite negative, urine leukoesterase trace amounts CT abdominal pelvis done showed fluid distention of small and large bowels felt to reflect enterocolitis with mild ileus Patient admitted to internal medicine service REVIEW OF SYSTEMS: CONSTITUTIONAL: No fever, no malaise, no fatigue. HEENT: No recent visual problems or hearing problems. Denied any sore throat. CARDIOVASCULAR: No chest pain, orthopnea, PND, no palpitations, no syncope. PULMONARY: No shortness of breath, no cough, no hemoptysis. GASTROINTESTINAL: As mentioned HPI NEUROLOGICAL: No headaches, no weakness, no numbness. HEMATOLOGICAL: Denies any bleeding or petechiae. GENITOURINARY: Denies any burning micturition, frequency, or urgency. MUSCULOSKELETAL/RHEUMATOLOGICAL: Denies any joint pain, swelling, or any muscle pain. ENDOCRINE: Denies any polyuria or polydipsia. The rest of the 14-point review of systems is negative. PHYSICAL EXAMINATION: GENERAL: The patient is alert and oriented x3, not in any acute distress. Well developed, well nourished. HEENT: Pupils are round and equally reacting to light. EOMI. No scleral icterus. No conjunctival pallor. Normocephalic, atraumatic. No pharyngeal erythema. No thyromegaly. CARDIOVASCULAR: S1 and S2 present. No murmurs, rubs, or gallops. PULMONARY: Chest is clear to auscultation, no wheezing or crackles. ABDOMEN: Tenderness in the left lower quadrant, bowel sounds sluggish. No palpable organomegaly. MUSCULOSKELETAL: No joint swelling or deformity. EXTREMITIES: No cyanosis, clubbing, or pedal edema. NEUROLOGICAL: Gross neurological examination did not reveal any focal deficits. SKIN: No rashes. Assessment and plan Acute enterocolitis Colonic obstruction Umbilical hernia Monitor vital signs Monitor CBC Monitor CMP Continue telemetry monitoring Continue IV fluid Continue antiemetics Continue pain management Start IV Cipro and Flagyl Consult general surgery Labs and medication were reviewed.. Continue same treatment. Continue with symptomatic treatment. Resume home medication. Monitor labs and vitals. DVT and GI prophylaxis. Further recommendations as per clinical course of the patient Dictation was produced using [employer] dictation software. please excuse any grammatical, word or spelling errors. Past Medical History Past Medical History: No Reported History Additional Past Medical History / Comment(s): UMBILICAL HERNIA History of Any Multi-Drug Resistant Organisms: None Reported Past Surgical History: Tubal Ligation, Uterine Ablation Additional Past Surgical History / Comment(s): UTERINE ABLATION 05/2021 Past Anesthesia/Blood Transfusion Reactions: No Reported Reaction Past Psychological History: Anxiety, Panic Disorder Smoking Status: Former smoker, Vaper Past Alcohol Use History: None Reported Past Drug Use History: None Reported - Past Family History Mother Family Medical History: No Reported History Additional Family Medical History / Comment(s): ADOPTED Medications and Allergies Home Medications Medication Instructions Recorded Confirmed Type Acetaminophen Tab [Tylenol Tab] 1,000 mg PO Q6HR PRN 06/08/23 06/14/23 History Albuterol Inhaler [Ventolin Hfa 1 - 2 puff INHALATION RT-Q6H PRN 06/08/23 06/14/23 History Inhaler] Benzonatate [Tessalon Perles] 100 mg PO TID PRN 06/08/23 06/14/23 History Hyoscyamine Sulfate [Levsin] 0.125 mg PO Q4HR PRN 06/08/23 06/14/23 History LORazepam [Ativan] 0.5 mg PO DAILY PRN 06/08/23 06/14/23 History Ondansetron Odt [Zofran Odt] 4 mg PO Q8HR PRN 06/08/23 06/14/23 History PARoxetine HCL 40 mg PO DAILY 06/08/23 06/14/23 History Rosuvastatin [Crestor] 20 mg PO DAILY 06/08/23 06/14/23 History diazePAM [Valium] 2 mg PO DAILY PRN 06/14/23 06/14/23 History traZODone HCL [Desyrel] 100 mg PO HS 06/14/23 06/14/23 History Allergies Allergy/AdvReac Type Severity Reaction Status Date / Time cefaclor [From [facility]] Allergy Rash/Hives Verified 06/14/23 09:21 doxycycline Allergy Nausea & Verified 06/14/23 09:21 Vomiting Penicillins Allergy Rash/Hives Verified 06/14/23 09:21 Sulfa (Sulfonamide Allergy Anaphylaxis Verified 06/14/23 09:21 Antibiotics) Physical Exam Vitals: Vital Signs Temp Pulse Pulse Resp BP BP BP 06/14/23 03:54 120/78 06/14/23 02:25 97.7 F 73 16 93/57 06/13/23 23:02 97.6 F 62 16 106/66 06/13/23 22:58 98.6 F 63 16 100/71 06/13/23 21:54 62 16 102/70 06/13/23 21:00 62 16 94/62 06/13/23 20:03 70 16 90/63 06/13/23 19:05 98.0 F 68 17 96/63 06/13/23 18:10 98.8 F 74 20 103/78 06/13/23 17:11 97.8 F 72 16 107/76 Pulse Ox 06/14/23 03:54 06/14/23 02:25 97 06/13/23 23:02 97 06/13/23 22:58 97 06/13/23 21:54 98 06/13/23 21:00 97 06/13/23 20:03 97 06/13/23 19:05 96 06/13/23 18:10 96 06/13/23 17:11 99 Intake and Output 06/13/23 06/14/23 06/14/23 22:59 06:59 14:59 Other: Voiding Method Toilet # Bowel Movements 1 Weight 77.111 kg 77.111 kg Results CBC & Chem 7: 06/14/23 09:11 06/14/23 09:11 Labs: Abnormal Lab Results - Last 24 Hours (Table) 06/13/23 06/13/23 06/13/23 Range/Units 17:45 18:00 18:00 WBC 14.6 H (3.8-10.6) k/uL Neutrophils # 10.4 H (1.3-7.7) k/uL Calcium 10.3 H (8.4-10.2) mg/dL Urine Appearance Cloudy H (Clear) Urine Protein Trace H (Negative) Urine Ketones 2+ H (Negative) Urine Blood Small H (Negative) Ur Leukocyte Esterase Trace H (Negative) Urine RBC 7 H (0-5) /hpf Ur Squamous Epith Cells 19 H (0-4) /hpf Urine Bacteria Moderate H (None) /hpf Urine Mucus Few H (None) /hpf Thrombosis Risk Factor Assmnt - Choose All That Apply Each Factor Represents 1 point: Age 41-60 years, Obesity (BMI >25) Thrombosis Risk Factor Assessment Total Risk Factor Score: 2 Thrombosis Risk Factor Assessment Level: Low Risk
[2023-06-14] MEDS: PARoxetine 20 MG TAB PO SCH (14:15)
[2023-06-14] MEDS: ATORVASTATIN 40 MG TAB PO SCH (14:15)
[2023-06-14] MEDS: traZODone HCL 100 MG TAB PO SCH (20:21)
[2023-06-15 08:51] LABS: Basophils # (A) 0.03 X 10*3/uL (0.00-0.10); Basophils % (A) 0.6 %; Eosinophils # (A) 0.48 X 10*3/uL (0.04-0.35); Eosinophils % (A) 10.1 %; HCT 32.2 % (37.2-46.3); HGB 10.4 g/dL (12.0-15.0); Immature Grans, Automated 0 %; Lymphocytes # (A) 1.78 X 10*3/uL (0.90-5.00); Lymphocytes % (A) 37.5 %; MCH 29.3 pg (27.0-32.0); MCHC 32.3 g/dL (32.0-37.0); MCV 90.7 FL (80.0-97.0); Mean Platelet Volume 9.8 FL (9.5-12.2); Monocytes % (A) 8.4 %; NRBC Per 100 WBC 0 X 10*3/uL (0.00-0.01); Neutrophils # (A) 2.06 X 10*3/uL (1.80-7.70); Neutrophils % (A) 43.4 %; Platelet Count 217 X 10*3/uL (140-440); RBC 3.55 X 10*6/uL (4.10-5.20); WBC 4.75 X 10*3/uL (4.50-10.00)
[2023-06-15] MEDS ORDERED: PARoxetine 20 MG TAB PO SCH (09:00)
[2023-06-15] MEDS ORDERED: ATORVASTATIN 40 MG TAB PO SCH (09:00)
[2023-06-15] MEDS: LORazepam 0.5 MG TAB PO PRN (09:05)
[2023-06-15 09:30] LABS: ALT 8 U/L (8-44); AST 10 U/L (13-35); Albumin 3.4 g/dL (3.8-4.9); Albumin/Globulin Ratio 1.89 Ratio (1.60-3.17); Alkaline Phosphatase 33 U/L (41-126); BUN/Creat Ratio 8.71 Ratio (12.00-20.00); Blood Urea Nitrogen 6.1 mg/dL (9.0-27.0); Calcium 8.2 mg/dL (8.7-10.3); Carbon Dioxide 24.3 mmol/L (21.6-31.8); Chloride 111 mmol/L (96-109); Globulin 1.8 g/dL (1.6-3.3); Glucose 73 mg/dL (70-110); Potassium 4.2 mmol/L (3.5-5.5); Sodium 142 mmol/L (135-145); Total Bilirubin 0.3 mg/dL (0.3-1.2); Total Protein 5.2 g/dL (6.2-8.2)
[2023-06-15] MEDS: ACETAMINOPHEN TAB 500 MG TAB PO PRN (10:24)
--- NOTE | 2023-06-15 12:01 | P.PN ---
Subjective Progress Note Date: 06/15/23 patient is a 42-year-old lady with past medical history significant for depression, hyperlipidemia who presented to the ER for abdominal pain. Patient was seen in the ER few days ago with similar complaints at which time she had abdominal CT scan done, she was diagnosed with having umbilical hernia, patient was discharged and referred to Dr. Greer. Patient stated that she continues to have abdominal pain, located in the left lower quadrants, intermittent, nonradiating, no aggravating or relieving factor associated with abdominal pain. Patient also complaining of not having a bowel movement for the last 3 days. Patient is saying that she is passing gas. Patient is complaining of nausea and vomiting. No complaint of fever or chills. Patient was scheduled for surgery in this coming week. Because of the symptoms, patient came to the ER Initial lab work done in the ER showed WBC 14.6, hemoglobin 15.1, platelet count 303, sodium 138, potassium 4.4 BUN 14, creatinine 0.76 glucose 99 calcium 10.3, AST 20, ALT 14, UA done showed Nitrite negative, urine leukoesterase trace amounts CT abdominal pelvis done showed fluid distention of small and large bowels felt to reflect enterocolitis with mild ileus Patient admitted to internal medicine service 06/14. Patient seen and examined. Blood work done this morning showed WBC 4.75, hemoglobin 10.4, platelet count 217, surgery schedule patient for Gastrografin enema. States abdominal pain has resolved., Patient having bowel movements, l oose in consistency. REVIEW OF SYSTEMS: CONSTITUTIONAL: No fever, no malaise,. CARDIOVASCULAR: No chest pain, no palpitations, no syncope. PULMONARY: No shortness of breath, no cough, GASTROINTESTINAL: no nausea, no vomiting, no abdominal pain. NEUROLOGICAL: No headaches, no weakness, PHYSICAL EXAMINATION: GENERAL: The patient is alert and oriented x3, not in any acute distress. Well developed, well nourished. HEENT: Pupils are round and equally reacting to light. EOMI. No scleral icterus. No conjunctival pallor. Normocephalic, atraumatic. No pharyngeal erythema. No thyromegaly. CARDIOVASCULAR: S1 and S2 present. No murmurs, rubs, or gallops. PULMONARY: Chest is clear to auscultation, no wheezing or crackles. ABDOMEN: Soft, nontender, nondistended, normoactive bowel sounds. No palpable organomegaly. MUSCULOSKELETAL: No joint swelling or deformity. EXTREMITIES: No cyanosis, clubbing, or pedal edema. NEUROLOGICAL: Gross neurological examination did not reveal any focal deficits. SKIN: No rashes. Assessment and plan Acute enterocolitis Colonic obstruction Umbilical hernia Monitor vital signs Monitor CBC Monitor CMP Continue telemetry monitoring Continue IV fluid Continue antiemetics Continue pain management Continue IV Cipro and Flagyl Patient scheduled for Gastrografin enema. General surgery following Labs and medication were reviewed.. Continue same treatment. Continue with symptomatic treatment. Resume home medication. Monitor labs and vitals. DVT a nd GI prophylaxis. Further recommendations as per clinical course of the patient Dictation was produced using [employer] dictation software. please excuse any grammatical, word or spelling errors. Objective - Vital Signs Vital signs: Vital Signs Temp 97.7 F 06/15/23 07:08 Pulse 63 06/15/23 07:08 Resp 16 06/15/23 07:08 BP 90/61 06/15/23 07:08 Pulse Ox 97 06/15/23 07:08 FiO2 Intake & Output 06/14/23 06/15/23 06/15/23 18:59 06:59 18:59 Other: # Voids 2 # Bowel Movements 1 - Labs CBC & Chem 7: 06/15/23 05:33 06/15/23 05:33 Labs: Abnormal Lab Results - Last 24 Hours (Table) 06/14/23 06/15/23 Range/Units 09:11 05:33 RBC 3.55 L (4.10-5.20) X 10*6/uL Hgb 10.4 L (12.0-15.0) g/dL Hct 32.2 L (37.2-46.3) % Eosinophils # 0.48 H (0.04-0.35) X 10*3/uL Chloride 111 H (98-107) mmol/L Total Protein 6.0 L (6.3-8.2) g/dL
--- NOTE | 2023-06-15 13:23 | FL ---
EXAMINATION TYPE: FL barium enema DATE OF EXAM: 06/15/2023 COMPARISON: NONE HISTORY: Pain TECHNIQUE: A single contrast Gastrografin enema study is performed. A total of 2 minutes and 23 sec onds of fluoroscopic time was utilized during procedure and 28 images obtained. Total dose area prod uct (DAP) in uGy*m?, mGy*cm? (or similar): Not provided. FINDINGS: Non Destructive Tester view of the abdomen shows overall non-obstructive bowel gas pattern. Limited assessment for polyps and colonic lesions due to retained debris through the colon. There is redundancy of the right colon. Which limits assessment. There is no evidence of obstruction or annula r constricting lesion. Appendix was filled and appeared normal. IMPRESSION: No evidence of colonic obstruction or annular constricting lesion. Assessment for polypo id or intraluminal lesions is limited due to retained debris.
--- NOTE | 2023-06-15 14:57 | P.PN ---
Subjective Progress Note Date: 06/15/23 CHIEF COMPLAINT: Abdominal pain HISTORY OF PRESENT ILLNESS: Patient presented with abdominal pain. She is now having flatus and did have a large bowel movement. She continues to have some tenderness around the umbilicus. She underwent a barium enema study today. Results reported no evidence of colonic obstruction or annular constriction lesion. Assessment for polyploid or intraluminal lesions is limited due to retrained debris. Afebrile. WBC 4.75 hemoglobin 10.4 PHYSICAL EXAM: VITAL SIGNS: Reviewed. GENERAL: Well-developed in no acute distress. ABDOMEN: Soft. Nondistended. Mild tenderness around the umbilicus. Umbilical hernia is reducible. Mild erythema. NEUROLOGIC: Alert and oriented. Cranial nerves II through XII grossly intact. ASSESSMENT: 1. Constipation. No evidence of bowel obstruction on. Minimal 2. Reducible umbilical hernia PLAN: -Advance diet to regular -Add lactulose 20 g daily for constipation -Patient is scheduled for an umbilical hernia repair on Thursday with Dr. Greer. Surgery can be completed outpatient depending on if her pain is controlled, tolerating diet and having bowel movements. Possible discharge tomorrow. Physician [employer] Officer note has been reviewed by physician. Signing provider agrees with the documented findings, assessment, and plan of care. Objective - Vital Signs Vital signs: Vital Signs Temp 97.5 F L 06/15/23 13:16 Pulse 70 06/15/23 13:16 Resp 16 06/15/23 13:16 BP 99/65 06/15/23 13:16 Pulse Ox 96 06/15/23 13:16 FiO2 Intake & Output 06/14/23 06/15/23 06/15/23 18:59 06:59 18:59 Other: # Voids 2 2 # Bowel Movements 1 3 - Labs CBC & Chem 7: 06/15/23 05:33 06/15/23 05:33 Labs: Abnormal Lab Results - Last 24 Hours (Table) 06/15/23 06/15/23 Range/Units 05:33 05:33 RBC 3.55 L (4.10-5.20) X 10*6/uL Hgb 10.4 L (12.0-15.0) g/dL Hct 32.2 L (37.2-46.3) % Eosinophils # 0.48 H (0.04-0.35) X 10*3/uL Chloride 111 H (96-109) mmol/L BUN 6.1 L (9.0-27.0) mg/dL BUN/Creatinine Ratio 8.71 L (12.00-20.00) Ratio Calcium 8.2 L (8.7-10.3) mg/dL AST 10 L (13-35) U/L Alkaline Phosphatase 33 L (41-126) U/L Total Protein 5.2 L (6.2-8.2) g/dL Albumin 3.4 L (3.8-4.9) g/dL
[2023-06-15] MEDS: HYDROmorphone 0.5 MG/0.5 ML SYRINGE IVP PRN (15:27)
[2023-06-15] MEDS: LACTULOSE 20 GM/30 ML CUP PO SCH (17:02)
[2023-06-16 08:25] VITALS: BP 116/79; PULSE 67; RESP 16; TEMP 97.9
--- NOTE | 2023-06-16 11:54 | P.PN ---
Subjective Progress Note Date: 06/16/23 CHIEF COMPLAINT: Abdominal pain HISTORY OF PRESENT ILLNESS: Patient had multiple bowel movements. She reports her abdominal pain from the constipation has improved. Her umbilical hernia is reducible. She is tolerating diet. She would like to be discharged home today. Afebrile. She has been up and ambulating. PHYSICAL EXAM: VITAL SIGNS: Reviewed. GENERAL: Well-developed in no acute distress. ABDOMEN: Soft. Nondistended. Mild tenderness palpation of the umbilicus. Reducible umbilical hernia. Erythema resolved. Lower abdominal tenderness resolved NEUROLOGIC: Alert and oriented. Cranial nerves II through XII grossly intact. ASSESSMENT: 1. Constipation improved 2. Reducible umbilical hernia PLAN: -Patient can be discharged from surgical standpoint with outpatient umbilical hernia repair scheduled for tomorrow 06/17/2023 -Recommend to continue a good bowel regimen at home -Recommend Tylenol as needed for pain to avoid constipation Physician Bulk Sealer note has been reviewed by physician. Signing provider agrees with the documented findings, assessment, and plan of care. Objective - Vital Signs Vital signs: Vital Signs Temp 97.9 F 06/16/23 08:00 Pulse 67 06/16/23 08:00 Resp 16 06/16/23 08:00 BP 116/79 06/16/23 08:00 Pulse Ox 97 06/16/23 08:00 FiO2 Intake & Output 06/15/23 06/16/23 06/16/23 18:59 06:59 18:59 Intake Total 180 Balance 180 Intake: Oral 180 Other: # Voids 2 3 # Bowel Movements 3 1 - Labs CBC & Chem 7: 06/15/23 05:33 06/15/23 05:33
--- NOTE | 2023-06-16 21:34 | P.DS ---
Providers Date of admission: 06/15/23 10:56 Attending physician: Heaven Giraldo Consults: 06/15/23 07:58 Consult Physician Routine Consulting Provider: Narendra Greer Consult Reason/Comments: ileus Do you want consulting provider notified?: Already Contacted Primary care physician: Ganga Leone [facility] Course: Diagnoses: Acute enterocolitis Colonic obstruction, improved with bowel regimen Umbilical hernia, plan for surgery on 06/16 that patient intends to follow-up Hospital course: patient is a 42-year-old lady with past medical history significant for depression, hyperlipidemia who presented to the ER for abdominal pain. Patient on admission also had leukocytosis of 14,000, CT of the abdomen and pelvis showing mild fluid distention of the small and large bowel felt to r eflect enterocolitis with mild ileus, patient evaluated by surgery team and she received extensive bowel regimen yesterday she had good bowel movement. Because of her enterocolitis patient was started on antibiotics Cipro Flagyl and patient showing improvement Today she is fully awake and oriented to time place person, she denies abdominal pain, no vomiting. She states that since yesterday she does not have bowel movement after she had the enema Patient looks motivated to follow-up tomorrow for her umbilical hernia repair, I discussed the case with surgery team who cleared her for discharge as well to follow-up tomorrow Patient denies any other new complaint and agrees to go home today. Patient will be discharged on short course of oral antibiotics for her colitis Problems and management plan were discussed with the patient and he verbalized understanding and acceptance Patient was found stable and can be discharged home in guarded prognosis however he needs follow-up as an outpatient. Patient was instructed to follow up with PCP Dr. Leone within one week and patient agrees Patient was instructed to follow-up with the surgeon Dr. Greer for her umbilical hernia repair tomorrow on 06/16 Physical exam Gen: patient is a AAOx3, no distress CVS: S1-S2, RRR, no murmur Lungs: B/L CTA, no wheezing Abdomen: soft, no distention, no tenderness, positive bowel sounds Extremity: no leg edema or induration Time spent more than 35 minutes Patient Condition at Discharge: Fair Plan - Discharge Summary New Discharge Prescriptions: New HYDROcodone/APAP 5-325MG [[place] 5-325] 1 tab PO Q6HR PRN 3 Days #12 tab PRN Reason: Severe Pain (Scale 7 To 10) Metoclopramide [Reglan] 10 mg PO Q6HR PRN #25 tab PRN Reason: Nausea And Vomiting Acetaminophen Tab [Tylenol] 325 mg PO Q6H PRN #20 tab PRN Reason: Pain Ciprofloxacin HCl [Cipro] 500 mg PO Q12HR 8 Days #16 tab metroNIDAZOLE [Flagyl] 500 mg PO TID 8 Days #24 tab Continue LORazepam [Ativan] 0.5 mg PO DAILY PRN PRN Reason: Anxiety Rosuvastatin [Crestor] 20 mg PO DAILY PARoxetine HCL 40 mg PO DAILY Albuterol Inhaler [Ventolin Hfa Inhaler] 1 - 2 puff INHALATION RT-Q6H PRN PRN Reason: Shortness Of Breath Benzonatate [Tessalon Perles] 100 mg PO TID PRN PRN Reason: Cough Discontinued Ondansetron Odt [Zofran Odt] 4 mg PO Q8HR PRN PRN Reason: nausea Acetaminophen Tab [Tylenol Tab] 1,000 mg PO Q6HR PRN PRN Reason: Pain diazePAM [Valium] 2 mg PO DAILY PRN PRN Reason: Anxiety traZODone HCL [Desyrel] 100 mg PO HS No Action Hyoscyamine Sulfate [Levsin] 0.125 mg PO Q4HR PRN PRN Reason: Gi Upset Discharge Medication List Albuterol Inhaler [Ventolin Hfa Inhaler] 1 - 2 puff INHALATION RT-Q6H PRN 06/08/23 [History] Benzonatate [Tessalon Perles] 100 mg PO TID PRN 06/08/23 [History] Hyoscyamine Sulfate [Levsin] 0.125 mg PO Q4HR PRN 06/08/23 [History] LORazepam [Ativan] 0.5 mg PO DAILY PRN 06/08/23 [History] PARoxetine HCL 40 mg PO DAILY 06/08/23 [History] Rosuvastatin [Crestor] 20 mg PO DAILY 06/08/23 [History] Acetaminophen Tab [Tylenol] 325 mg PO Q6H PRN #20 tab 06/16/23 [Rx] Ciprofloxacin HCl [Cipro] 500 mg PO Q12HR 8 Days #16 tab 06/16/23 [Rx] HYDROcodone/APAP 5-325MG [[place] 5-325] 1 tab PO Q6HR PRN 3 Days #12 tab 06/16/23 [Rx] Metoclopramide [Reglan] 10 mg PO Q6HR PRN #25 tab 06/16/23 [Rx] metroNIDAZOLE [Flagyl] 500 mg PO TID 8 Days #24 tab 06/16/23 [Rx] Follow up Appointment(s)/Referral(s): Ganga Leone MD [Primary Care Provider] - 1-2 days Narendra Greer MD [STAFF PHYSICIAN] - 1-2 Days Activity/Diet/Wound Care/Special Instructions: regular diet activity is restricted till you see your doctor we recommend to follow up with the surgery team for tomorrow 06/17/2023 for your hernia repair as schedule previously per surgical scheduling team- please take morning ativan & paxil with a sip of water, bring rescue inhaler with you, NPO (nothing to eat after midnight) please take shower with surgical soap morning of procedure, no lotion, perfume or jewelry cannot drive self-please arrange surgical dept will call today between 230pm-4pm with surgery arrival time. We recommend to avoid Zofran and trazodone while you are on antibiotic. We recommend to talk to your doctor prior to resuming this medications Discharge Disposition: HOME SELF-CARE
== END 2023-06-16 11:40 | disposition home or self-care, planned readmission (81) ==
LOC: EC 17:08 → 6NMEDSUR 21:33 → UNDOADMOB 21:33 → 6NMEDSUR 21:56 → OBSVTOIN 06-15 10:56 → INTOOBSV 06-15 10:56 → UNDODISIN 06-16 11:40
PROVIDERS: ADMIT Hospitalist; ATTEND Hospitalist
DX: K52.9 Noninfective gastroenteritis and colitis, unspecified (principal); K56.609 Unspecified intestinal obstruction, unspecified as to partial versus complete obstruction; K42.9 Umbilical hernia without obstruction or gangrene; K59.00 Constipation, unspecified; F41.0 Panic disorder [episodic paroxysmal anxiety]; F32.A Depression, unspecified; E78.5 Hyperlipidemia, unspecified; Z87.891 Personal history of nicotine dependence; Z79.899 Other long term (current) drug therapy; Z88.1 Allergy status to other antibiotic agents; Z88.0 Allergy status to penicillin; Z88.2 Allergy status to sulfonamides
CPT/HCPCS: 96376 ×4; 96361 ×3; 96365; 96366 ×3; 96375 ×3; 96368; 99285; 36415; 80053 ×3; 82150; 83605; 83690; 85025 ×3; 81001; 84703; 74270; 74177; G0378 ×5; J2060 ×2; J2765 ×3; J2405 ×3; J0744 ×3; J1170 ×5; J1885; Q9967; J1836 ×3; 96374

== ENCOUNTER 2023-06-17 10:48 | Day surgery (SDC) | payer OTHER ==
[2023-06-12 12:53] VITALS: BMI 25.6
[2023-06-17] MEDS: LACTATED RINGERS 1,000 ML IV SCH (11:45)
[2023-06-17] MEDS: ONDANSETRON 4 MG/2 ML VIAL ONE (11:53)
[2023-06-17] MEDS: DEXAMETHASONE SOD PHOSPHATE 4 MG/ML 1 ML VIAL IVP ONE (11:53)
[2023-06-17] MEDS: MIDAZOLAM 2 MG/2 ML VIAL IVP ONE (12:05)
[2023-06-17] MEDS: fentaNYL (PF) 50 MCG/ML 2 ML AMP IVP ONE (12:06)
--- NOTE | 2023-06-17 12:23 | P.ANPRN ---
Procedure Note - Anesthesia - Nerve Block Performed Bilateral Erector Spinae Single Time Out Performed: Yes Date of Procedure: 06/17/23 Procedure Start Time: 12:04 Procedure Stop Time: 12:11 Location of Patient: PreOp Indication: Acute Post-Operative Pain, Requested by Surgeon Sedation Type: Sedate with meaningful contact maintained Preparation: Sterile Prep Position: Prone Needle Types: Pajunk Needle Gauge: 21 Ultrasound used to visualize needle placement: Yes Injectate: 0.5% Ropivacaine (see comment for volume) (Ropivacaine 0.5% 15 ml + 15 ml NS + 4 mg Dexamethasone per side) Blood Aspirated: No Pain Paresthesia on Injection Noted: No Resistance on Injection: Normal Image Stored and Saved: Yes Events: Uneventful and Well Tolerated
[2023-06-17] MEDS: HEPARIN SODIUM,PORCINE 5,000 UNIT/ML 1 ML VIAL SQ ONE (13:03)
[2023-06-17] MEDS ORDERED: SUCCINYLCHOLINE CHLORIDE 200 MG/10 ML VIAL IV ONE (13:13)
[2023-06-17] MEDS ORDERED: PROPOFOL 10 MG/ML 20 ML VIAL IV ONE (13:13)
[2023-06-17] MEDS ORDERED: MIDAZOLAM 2 MG/2 ML VIAL ONE (13:13)
[2023-06-17] MEDS ORDERED: ROCURONIUM 10 MG/ML (5 ML VIAL) IV ONE (13:13)
[2023-06-17] MEDS ORDERED: ROPIVACAINE 5 MG/ML 30 ML VIAL ONE (13:13)
[2023-06-17] MEDS ORDERED: fentaNYL (PF) 50 MCG/ML 2 ML AMP ONE (13:13)
[2023-06-17] MEDS ORDERED: NEOSTIGMINE 1 MG/ML 10 ML VIAL ONE (13:13)
[2023-06-17] MEDS ORDERED: SODIUM CHLORIDE 0.9% (PF) 10 ML VIAL ONE (13:13)
[2023-06-17] MEDS ORDERED: KETOROLAC 30 MG/ML 1 ML VIAL ONE (13:13)
[2023-06-17] MEDS ORDERED: KETAMINE HCL IN 0.9 % NACL 50 MG/5 ML SYRINGE ONE (13:13)
[2023-06-17] MEDS ORDERED: LIDOCAINE 1% INJ 10MG/ML (20 ML MDV) ONE (13:13)
[2023-06-17] MEDS ORDERED: DEXAMETHASONE SOD PHOSPHATE 4 MG/ML 1 ML VIAL ONE (13:13)
[2023-06-17] MEDS ORDERED: GLYCOPYRROLATE 0.2 MG/ML 2 ML VIAL ONE (13:13)
[2023-06-17] MEDS: BUPIVACAINE (PF) 0.25% 30 ML VIAL SQ ONE ×2 (13:43)
--- NOTE | 2023-06-17 14:20 | P.OP ---
Date of Procedure: 06/17/23 Preoperative Diagnosis: umbilical hernia Postoperative Diagnosis: incarcerated umbilical hernia Procedure(s) Performed: laparoscopic robotic-assisted repair of incarcerated umbilical hernia Partial omentectomy Transversus abdominis plane block Anesthesia: LUI Surgeon: Narendra Greer Estimated Blood Loss (ml): 5 Pathology: other (omentum) Condition: stable Disposition: PACU Description of Procedure: The patient was placed on the operating table in the supine position. He received general anesthesia. His abdomen was prepped and draped usual fashion. Using a 5 mm optical trocar under direct visualization the peritoneal cavity was entered in the left upper quadrant. The abdomen was then insufflated. The laparoscope was placed back into the perineal cavity. Next a 8 mm robotic trocar was placed in the left lower quadrant and a 12 mm robotic trocar was placed in the left lateral position. The original 5 mm trocar was exchanged for a 8 mm robotic trocar. A four-quadrant transverse loop colostomy block was performed 1% local Xylocaine. The patient's placed in the left side up position. And the patient was undocked to the robote robot. The umbilical hernia was visualized. Using hook cautery the peritoneum over the umbilical hernia was excised. the incarcerated omentum and hernia sac was then dissected and sent to pathology.The fascial opening was repaired using 0V LOC suture. Next a piece of 11 cm round ventral light ST mesh was placed into the. Cavity and secured with 2 OV lock suture. The patient was undocked the robot. The needles were retrieved. The fascia of the 12 mm trocar site was closed with 0 Ethibond suture. Skin was closed interrupted 3-0 Monocryl suture. Dermabond dressings was applied. Patient top procedure well and was sent to recovery room stable condition.
[2023-06-17] MEDS: MEPERIDINE 50 MG/ML SYRINGE IVP ONE (14:28)
[2023-06-17 14:40] VITALS: TEMP 98.8
[2023-06-17] MEDS: diphenhydrAMINE 50 MG/ML 1 ML VIAL IVP ONE (14:44)
[2023-06-17] MEDS: HYDROmorphone 0.5 MG/0.5 ML SYRINGE IVP ONE ×2 (14:45→15:08)
[2023-06-17 16:01] VITALS: BP 130/89; RESP 18
[2023-06-17] MEDS: IBUPROFEN 600 MG TAB PO ONE (16:09)
[2023-06-17 17:19] VITALS: PULSE 67
== END 2023-06-17 16:39 | disposition home or self-care (01) ==
LOC: OR 10:48
PROVIDERS: ATTEND Surgery
DX: K42.0 Umbilical hernia with obstruction, without gangrene (principal); G89.18 Other acute postprocedural pain; E78.5 Hyperlipidemia, unspecified; F41.9 Anxiety disorder, unspecified; F41.0 Panic disorder [episodic paroxysmal anxiety]; F17.290 Nicotine dependence, other tobacco product, uncomplicated; Z88.1 Allergy status to other antibiotic agents; Z88.0 Allergy status to penicillin; Z88.2 Allergy status to sulfonamides; Z88.8 Allergy status to other drugs, medicaments and biological substances
CPT/HCPCS: 81025; 64999; 49592; C1781; J2250; J0330; J1200; J1644; J1100; J2710; J2175; J0690; J2405; J2001; J3010; J1885; J2795; J2704; J1170; J0665; 88302